=== PATIENT | male | born 1975 | race Caucasian/White ===

== ENCOUNTER 2016-09-28 18:56 | Emergency (ER) | payer MEDICAID, OTHER ==
[~2016-09-28] VITALS: Ht 167.6 cm; Wt 92.0 kg
[~2016-09-28 18:56] MED LIST: AZIT250T94 PO; HYDR-3720 PO; IBUP800T25 PO
[2016-09-28 19:02] VITALS: Ht 167.6 cm; Wt 92.0 kg
[2016-09-28] MEDS ORDERED: PRED20TA PO (21:28)
[2016-09-28] MEDS ORDERED: HYDR-902 PO (21:28)
[2016-09-28] MEDS ORDERED: METH-70 PO (21:28)
--- NOTE | 2016-09-28 21:30 | ERD ---
ER Documentation Chief Complaint Date/Time DATE: 09/28/16 TIME: 21:28 Chief Complaint right shoulder pain after trimming trees 10 days ago HPI This a 41-year-old male who was trimming trees and carrying heavy rocks on his right shoulder states that he is gradually having more pain in his right shoulder and arm. He said did not have any trauma to the shoulder but he said that the next day after his excessive working he has some soreness in his right trapezius and right neck area he said that this gradually has gotten better but has developed some radiating pain down his right arm specifically the inner right arm down to the elbow. No weakness. He says the pain is described as burning and worse at night. He has no neck pain with range of motion ROS All systems reviewed and are negative except as per history of present illness. Medications Home Meds Active Scripts Methocarbamol* (Robaxin*) 750 Mg Tablet, 750 MG PO TID, #30 TAB Prov:RADHA BURR DO 09/28/16 Hydrocodone/Acetaminophen ([place] 10-325 Tablet) 1 Each Tablet, 1 TAB PO Q6H Y for PAIN, #20 TAB Prov:RON BURRS A. DO 09/28/16 Prednisone* (Prednisone*) 20 Mg Tab, 60 MG PO DAILY for 5 Days, TAB Prov:RON BURRS Lety. DO 09/28/16 Hydrocodone Bit-Acetaminophen* ([place]*) 7.5-325 Tablet, 2 TAB PO Q4H Y for PAIN , #30 TAB Prov:RADHA BURR DO 06/12/15 Ibuprofen* (Motrin*) 800 Mg Tab, 800 MG PO Q6H Y for PAIN AND OR ELEVATED TEMP, #30 TAB Prov:RON BURRS A. DO 06/12/15 Azithromycin* (Zithromax*) 250 Mg Tablet, 250 MG PO .SedaPACK DIRECTED, #6 TAB TAKE 500 MG (2 TABS) THE FIRST DAY THEN 250 MG (1 TAB) DAYS 2-5 Prov:MADDISON BURRSTADOLFOS Florentin DO 06/12/15 Allergies Allergies: Coded Allergies: No Known Allergy (Unverified , 06/12/15) PMhx/Soc History of Surgery: No Anesthesia Reaction: No Hx Neurological Disorder: No Hx Respiratory Disorders: No Hx Cardiac Disorders: No Hx Psychiatric Problems: No Hx Miscellaneous Medical Probl: Yes (Hepatitis C ) Hx Alcohol Use: No (QUIT 7YRS AGO) Hx Substance Use: Yes (QUIT COCAINE 7 YRS AGO; SMOKE MARIJUANA) Hx Tobacco Use: No Smoking Status: Former smoker FmHx Family History: No coronary disease Physical Exam Vitals Vital Signs Date Time Temp Pulse Resp B/P Pulse Ox O2 Delivery O2 Flow Rate FiO2 09/28/16 19:02 97.8 87 20 133/87 100 Physical Exam Const: Well-developed, well-nourished Head: Atraumatic, normocephalic Eyes: Normal Conjunctiva, PERRLA, EOMI, normal sclera, no nystagmus ENT: Normal External Ears, Nose and Mouth, moist mucus membranes. Neck: Full range of motion. No meningismus, no lymphadenopathy. Resp: Clear to auscultation bilaterally, no wheezing, rhonchi, rales Cardio: Regular rate and rhythm, no murmurs, S1 S2 present Abd: Soft, non tender x 4, non distended. Normal bowel sounds, no guarding or rebound, no pulsitile abdominal masses or bruits Skin: No petechiae or rashes, no ecchymosis , no maculopapular rash Back: No midline or flank tenderness Ext: No cyanosis, or edema, FROM x 4, normal inspection, neurovascularly intact x 4 Neur: Awake and alert, STR 5/5 x 4, sensation intact x 4, no focal findings, cerebellum intact there is worsening burning pain down the right arm when he turns his head to the right with extension of the right arm Psych: Normal Mood and Affect Procedures/MDM Feel the patient has nerve impingement and will treat accordingly with prednisone [place] and Robaxin Departure Diagnosis: Primary Impression: Cervical radiculopathy Condition: Stable Patient Instructions: Radiculopathy, Cervical RADHA BURR DO Sep 28, 2016 21:30
[2016-09-28 21:34] VITALS: BP 128/85; PULSE 72; RESP 18; TEMP 98
== END 2016-09-28 21:35 | disposition home or self-care (01) ==
LOC: FTE 18:56
DX: M54.12 Radiculopathy, cervical region (principal); Z87.891 Personal history of nicotine dependence
CPT/HCPCS: 99284